=== PATIENT | female | born 1990 | race Two or more races ===

== ENCOUNTER 2016-11-14 22:19 | Emergency (ER) | payer SELFPAY ==
[~2016-11-14 22:19] MED LIST: ALBUTEROL17 GM INH; AMOXICILLIN500 M PO; NO HOME MEDICATION XX; NO MEDS; ORTHO TRI-7 DAYS X; PHENERGAN W/CO120 ML PO; VICODIN 5/500 T1 TAB PO
[2016-11-14] MEDS ORDERED: NORCO 5/3251 TAB PO (23:18)
== END 2016-11-14 23:28 ==
LOC: EDMED 22:19
DX: B02.9 Zoster without complications (principal); F17.200 Nicotine dependence, unspecified, uncomplicated; Z90.49 Acquired absence of other specified parts of digestive tract